=== PATIENT | male | born 2000 | race Caucasian/White ===

== ENCOUNTER 2019-11-16 00:44 | Emergency (ER) | payer SELFPAY ==
[~2019-11-16] VITALS: Ht 177.8 cm; Wt 74.8 kg
--- NOTE | 2019-11-16 00:44 | NUR ---
[facility] C/O FOUND IN AN ALLEY WITH MULTIPLE EMPTY CANS OF WHITE CLAW. PT ALTERED, ETOH, PT TO BED 12, RR EVEN AND UNLABORED, -SOB, VSS, PENDING MD GAMEZ
--- NOTE | 2019-11-16 01:07 | NUR ---
PT TO CT
--- NOTE | 2019-11-16 05:36 | NUR ---
PT IS AWAKE, [id number]. STATED HE IS HOMELESS. PT C/O L KNEE PAIN. ABRASION NOTED ON L KNEE. MD RODAS. XRAY ORDERED.
--- NOTE | 2019-11-16 05:45 | NUR ---
XRAY AT BEDSIDE
[2019-11-16 06:05] VITALS: BP 121/62
== END 2019-11-16 06:05 | disposition home or self-care (01) ==
LOC: ER 00:44
DX: S80.12XA Contusion of left lower leg, initial encounter (principal); F10.129 Alcohol abuse with intoxication, unspecified; M25.562 Pain in left knee; R41.82 Altered mental status, unspecified; X58.XXXA Exposure to other specified factors, initial encounter; Y93.89 Activity, other specified; Y92.89 Other specified places as the place of occurrence of the external cause; Y99.8 Other external cause status; Y90.9 Presence of alcohol in blood, level not specified
CPT/HCPCS: 70450-TC; 73564-TC; 73590-TC; 82962-TC